=== PATIENT | male | born 1970 | race Caucasian/White ===

== ENCOUNTER 2022-03-28 15:38 | Emergency (ER) | payer OTHER, SELFPAY ==
--- NOTE | 2022-03-28 15:43 | ECG_ITS ---
Test Reason : CHEST PAIN Blood Pressure : / mmHG Vent. Rate : 069 BPM Atrial Rate : 069 BPM P-R Int : 162 ms QRS Dur : 084 ms QT Int : 356 ms P-R-T Axes : 027 014 026 degrees QTc Int : 381 ms Normal sinus rhythm Normal ECG No previous ECGs available Referred By: Generic ED Physician Electronically Signed By:YE FLORES
[2022-03-28 16:32] VITALS: BP 136/86; PULSE 67; RESP 20; TEMP 35.9; O2SAT 97; BMI 29.7
[2022-03-28 18:34] LABS: MANUAL DIFF FLAG NO
[2022-03-28 18:37] LABS: Basophils Percent Auto 0.5 % (0-2); Hemoglobin 15.4 g/dl (14.0-18.0); Imm Gran Abs Auto 0.01 X10*3/uL (0.00-0.03); Imm Gran Pct Auto 0.2 % (0.0-0.4); Lymphocytes Absolute Auto 2.4 X10*3/uL (1.2-4.9); Lymphocytes Percent Auto 37.6 % (20-40); Mean Corpuscular HGB Conc 33.5 g/dl (31.0-36.0); Mean Corpuscular Volume 89.5 fL (80.0-98.0); Mean Platelet Volume 10.8 fL (9.4-12.4); Monocytes Absolute Auto 0.6 X10*3/uL (0.1-1.2); Monocytes Percent Auto 8.9 % (2-11); Neutrophils Absolute Auto 3.3 x10*3/uL (2.0-8.3); Neutrophils Percent Auto 52.8 % (45-73); Platelet Count 210 X10*3/uL (160-400); Red Blood Count 5.14 X10*6/uL (4.60-5.80); Red Cell Distribution Width 12.6 % (11.0-16.0); White Blood Count 6.3 X10*3/uL (4.8-10.8)
[2022-03-28 18:51] LABS: Anion Gap 12 (12-20); Blood Urea Nitrogen 19 mg/dL (9-16); Carbon Dioxide 26 mmol/L (22-29); Chloride 108 mmol/L (96-108); Creatinine Clr Calc Pharmacy 95.4; Estimated Glomerular Filt Rate > 60; Glucose Random 96 mg/dL (60-115); Potassium 4.4 mmol/L (3.3-5.1); Sodium 142 mmol/L (135-145)
[2022-03-28 18:59] LABS: Troponin-I High Sensitivity < 3.5 ng/L (<3.5-35.0)
[2022-03-28 20:26] VITALS: BP 137/84; PULSE 58; RESP 20; O2SAT 99
--- NOTE | 2022-03-28 20:33 | ED.CHESTPAIN ---
HPI - Chest Pain General Chief Complaint: Chest Pain Stated Complaint: chest pain Source: patient Mode of arrival: ambulatory Limitations: no limitations History of Present Illness HPI narrative: 51-year-old male presents with substernal chest pain that has been unrelieved for the past few days. This substernal chest pain started on Saturday while he was running. States that he had some shortness of breath and some burning, felt like that it could possibly be GERD like symptoms. He states that the chest pain feels like a pressure and tightness with a burning sensation. The pain has not been relieved, it does not change with position, and is unknown if it is associated with diaphoresis because the onset was while he was running. He does not report dizziness, lightheadedness, extremity pain, abdominal pain, abdominal distention, dysuria, hematuria, edema, changes in vision, or headaches. MD complaint: chest pain Onset (ago): day(s) (5) Timing of current episode: constant Prior episodes: No Onset: during exertion Pain location: substernal Pain radiation: none Severity: moderate Pain scale (0-10): 4 Quality: tightness, heaviness and burning Relieving factors: nothing Exacerbating factors: exertion Treatment prior to arrival: none Risk Factors Coronary artery disease risk factors: none Thoracic aortic dissection risk factors: none Related Data Allergies Allergy/AdvReac Type Severity Reaction Status Date / Time No Known Allergies Allergy Verified 03/28/22 20:27 Review of Systems Review of Systems: Constitutional: No Fever, No Chills ENT/Mouth: No Ear Pain, No Hoarseness, No sore throat Eyes: No Eye Pain, No Swelling, No Redness, No Foreign Body Cardiovascular: Positive Chest Pain, positive SOB Respiratory: No Cough, No Dyspnea Gastrointestinal: No Nausea, No Vomiting, No Diarrhea, No abdominal Pain Genitourinary: No Dysuria, No Hematuria Musculoskeletal: No joint pain, No Myalgias, No Joint Swelling Skin: No Skin lacerations, No rash Neuro: No Weakness, No Numbness, No Paresthesias, No Loss of Consciousness, No Dizziness, No Headache Psych: No Anxiety/Panic, No Depression Heme/Lymph: no easy bruising, no Lymphadenopathy Endocrine: No Polyuria, No Polydipsia Yes all other systems are reviewed and are negative PMFSH Past Medical History Attestation statement: The following information was validated with the patient. Source: old records reviewed Social History Social History Advance Directives: No Advance Directives Information Provided: No Physical Exam Vital Signs: Vital Signs: Last Vital Signs Temp 96.6 F L 03/28/22 16:32 Pulse 58 03/28/22 20:26 Resp 20 03/28/22 20:26 BP 137/84 03/28/22 20:26 Pulse Ox 99 03/28/22 20:26 O2 Del Method 03/28/22 20:26 BMI result Body Mass Index 29.7 Appearance: Alert. Oriented X3. No acute distress. Eyes: Pupils equal, round and reactive to light. ENT: Pharynx normal. Neck: Normal inspection. Neck supple. CVS: Normal heart rate and rhythm. Respiratory: No respiratory distress. Even unlabored respirations. Abdomen: Soft and nontender. Skin: Skin warm and dry. Normal skin color. Normal skin turgor. Extremities: No lower extremity edema. Gait well-balanced well coordinated. Neuro: No motor deficit. No sensory deficit. Cranial nerves 2-12 intact. Course Course Course Narrative: 51-year-old male presents with substernal chest pain for approximately 5 days. Substernal chest pain feels like a burning pressure pain that causes shortness of breath. Started while he was running and has not been alleviated. Unknown if the onset of chest pain was associated with diaphoresis as he was running. Labs drawn while patient was in the emergency department waiting room. EKG is normal sinus rhythm, troponins are negative. Labs are unremarkable. Considering the chest pain started on exertion and has not been alleviated, this could possibly be GERD, however, underlying cardiac issues cannot be ruled out. I did discuss this case with Dr. Denney via tiger text, plan is for patient to follow-up in the office for outpatient stress test. I did discuss my concerns with the patient, he does agree with my plan, and will follow up with Dr. Denney. Patient verbalized understanding of and agrees plan of care discharge home. Verbalized understanding of signs and symptoms indicating need for emergent intervention. Consultations Consultation #1: Dr. Denney Time: 21:00 MDM - Chest Pain Differential Diagnosis Differential diagnosis: Likely pneumothorax, atypical chest pain, st elevation myocardial infarction and chest pain Differential diagnosis: GERD Medical Records Data Attestation: I reviewed the patient's medical records. Lab Data Attestation: I reviewed the patient's lab results. Result diagrams: 03/28/22 18:26 03/28/22 18:26 Labs: Lab Results 03/28/22 03/28/22 03/28/22 Range/Units 18:26 18:26 18:26 WBC 6.3 (4.8-10.8) X10*3/uL RBC 5.14 (4.60-5.80) X10*6/uL Hgb 15.4 (14.0-18.0) g/dl Hct 46.0 (42.0-52.0) % MCV 89.5 (80.0-98.0) fL MCH 30.0 (27.0-33.0) pg MCHC 33.5 (31.0-36.0) g/dl RDW 12.6 (11.0-16.0) % Plt Count 210 (160-400) X10*3/uL MPV 10.8 (9.4-12.4) fL Immature Gran % (Auto) 0.2 (0.0-0.4) % Neut % (Auto) 52.8 (45-73) % Lymph % (Auto) 37.6 (20-40) % [place] % (Auto) 8.9 (2-11) % Eos % (Auto) 0.0 (0-4) % Baso % (Auto) 0.5 (0-2) % Lymph # (Auto) 2.4 (1.2-4.9) X10*3/uL [place] # (Auto) 0.6 (0.1-1.2) X10*3/uL Eos # (Auto) 0.0 (0.0-0.4) X10*3/uL Baso # (Auto) 0.0 (0.0-0.2) X10*3/uL Abs Immat Gran (auto) 0.01 (0.00-0.03) X10*3/uL Absolute Neuts (auto) 3.3 (2.0-8.3) x10*3/uL Absolute Nucleated RBC 0.000 (0.0-0.012) X10*3/uL Nucleated RBC % (auto) 0.0 (0.0-0.2) /100WBC Sodium 142 (135-145) mmol/L Potassium 4.4 (3.3-5.1) mmol/L Chloride 108 (96-108) mmol/L Carbon Dioxide 26 (22-29) mmol/L Anion Gap 12 (12-20) BUN 19 H (9-16) mg/dL Creatinine 1.21 (0.5-1.4) mg/dL Estim Creat Clear Calc 95.4 Estimated GFR > 60 Random Glucose 96 (60-115) mg/dL Calcium 9.0 (8.4-10.2) mg/dL Troponin I High Sens < 3.5 (<3.5-35.0) ng/L ECG Data ECG #1: Attestation: I personally reviewed and interpreted this ECG as follows: ECG interpretation date: 03/28/22 ECG interpretation time: 15:48 Prior ECG tracings: not available for review Interpretation: Vent. rate 69 BPM OK interval 162 ms QRS duration 84 ms QT/QTc 356/381 ms P-R-T axes 27 14 26 Normal sinus rhythm Normal ECG No previous ECGs available Discharge Plan Discharge Clinical Impression: Atypical chest pain Patient Disposition: Home, Self-Care Instructions: Chest Pain (ED) Additional Instructions: You were evaluated for chest pain. Your EKG is normal sinus rhythm. Cardiac enzymes are negative. Please follow-up with Dr. Denney this week. We would like you to have a stress test. You may also consider following up with Gastroenterology for GERD symptoms. I have referred you to Dr Esquivel. please call and request an appointment for evaluation. Thank you for choosing this emergency department for evaluation. Please follow-up with primary care physician as needed. Return to the emergency department for any new, concerning, or worsening symptoms. Referrals: Fortino Esquivel MD [Physician] - 1 week (Possible GERD) Eder Denney MD [Physician] - 1 week (Chest pain, would like a stress test) Interventions: ED Discharge Assessment Last Done: 03/28/22 21:24 Discharge Date/Time: 03/28/22 21:31
== END 2022-03-28 21:31 | disposition home or self-care (01) ==
PROVIDERS: Emergency Provider Internal Medicine; PCP Physician Assistant
DX: R07.89 Other chest pain (principal); R06.02 Shortness of breath
CPT/HCPCS: 36415; 80048; 84484; 85025; 93005; 99283; 99284